=== PATIENT | female | born 1975 | race Caucasian/White ===

== ENCOUNTER 2023-11-17 07:56 | Day surgery (SDC) | payer BC ==
[2023-11-13 10:35] VITALS: BMI 25.4
[2023-11-17] MEDS ORDERED: Lidocaine 1% PF 5 ML VIAL ONE (08:29)
[2023-11-17] MEDS ORDERED: Rocuronium Bromide 10 MG/ML (10ML VIAL) ONE (08:29)
[2023-11-17] MEDS ORDERED: fentaNYL PF 100 MCG/2 ML SYRINGE ONE ×2 (08:29→09:50)
[2023-11-17] MEDS ORDERED: PROPOFOL 20 ML ONE (08:29)
[2023-11-17 08:47] LABS: #Eosinphils 0.3 thou/uL (0.0-0.7); #Monocytes 0.7 thou/uL (0.11-0.59); #Neutrophils 2.6 thou/uL (1.40-6.50); %Basophils 0.5 % (0.0-1.0); %Lymphocytes 46.5 % (21.0-51.0); %Monocytes 9.9 % (0.0-10.0); %Neutrophils 38.8 % (42.0-75.0); Hematocrit 38.5 % (36.0-47.0); Hemoglobin 12.9 g/dL (12.0-16.0); Mean Corpuscular HGB CONC 33.5 g/dL (32.0-36.0); Mean Corpuscular Hemoglobin 29.3 pg (27.0-31.0); Mean Corpuscular Volume 87.5 fl (78.0-98.0); Mean Platelet Volume 9.1 fL (7.4-10.4); Platelet Count 431 10x3/uL (130-400); RBC Distribution Width 12.5 % (11.5-14.5); White Blood Cell (WBC) Count 6.6 10x3/uL (4.8-10.8)
[2023-11-17] MEDS ORDERED: Vancomycin 1 GM VIAL ONE (09:00)
[2023-11-17] MEDS ORDERED: Sodium Chloride 0.9% 100 ML ONE (09:10)
[2023-11-17] MEDS ORDERED: CEFAZOLIN 2 GM VIAL ONE (09:10)
[2023-11-17] MEDS ORDERED: Midazolam HCl 2 mg/2 ml Vial ONE (09:11)
[2023-11-17] MEDS ORDERED: Scopolamine 1 mg/72 hour Patch ONE (09:11)
[2023-11-17] MEDS ORDERED: Lidocaine 1% MPF 2 ML VIAL ONE (09:11)
[2023-11-17] MEDS ORDERED: Famotidine/PF 20 mg/2ml Vial ONE (09:18)
[2023-11-17 09:35] LABS: Anion Gap 15 mmol/L (10-20); BUN (Urea Nitrogen) 10 mg/dL (7.0-18.7); Calc. Creatinine Clearance 117 mL/min (70-130); Calcium 8.6 mg/dL (7.8-10.44); Carbon Dioxide 19 mmol/L (22-29); Chloride 107 mmol/L (98-107); Estimated GFR 109; Glucose 79 mg/dL (70-105); Potassium 4.2 mmol/L (3.5-5.1); Sodium 137 mmol/L (136-145)
[2023-11-17] MEDS ORDERED: Ondansetron PF 4 MG/2 ML Vial ONE (09:52)
[2023-11-17] MEDS ORDERED: Ketorolac Tromethamine 30 MG (1 mL) VIAL ONE (09:52)
[2023-11-17] MEDS ORDERED: Dexamethasone 4 mg/ml Vial ONE (09:52)
[2023-11-17] MEDS ORDERED: PHENYLEPHRINE-NS 100 MCG/ML 10 ML SYRINGE ONE (10:14)
[2023-11-17] MEDS ORDERED: SUGAMMADEX SODIUM 200 MG/2 ML VIAL ONE (10:21)
[2023-11-17] MEDS ORDERED: fentaNYL 50 mcg/mL 1 mL Vial ONE ×2 (11:03→12:17)
[2023-11-17] MEDS ORDERED: HYDROmorphone 0.5 MG/0.5 ML SYRINGE ONE ×3 (11:16→11:47)
[2023-11-17] MEDS ORDERED: Cyclobenzaprine 10 MG TAB ONE (11:27)
[2023-11-17] MEDS ORDERED: HYDROcodone/Acetaminophen 10/325 mg Tablet ONE (12:58)
== END 2023-11-17 14:00 | disposition home or self-care (01) ==
LOC: SDC 07:56
PROVIDERS: ATTEND Neurological Surgery
PROC: 0SG00K1 Fusion of Lumbar Vertebral Joint with Nonautologous Tissue Substitute, Posterior Approach, Posterior Column, Open Approach (ICD-10-PCS; principal; 2023-11-17)
DX: M51.16 Intervertebral disc disorders with radiculopathy, lumbar region (principal)
CPT/HCPCS: 80048; 85025; 93005; 93010; C1713; C1889; J1100; J1170; J1885; J2250; J2405; J2704; J3010; J3370; J3490; S0028